=== PATIENT | female | born 1960 | race American Indian/Alaskan Native ===

== ENCOUNTER 2020-01-04 08:59 | Outpatient (CLI) | payer BC ==
--- NOTE | 2020-01-04 11:26 | Vascular Lab Report ---
VL venous duplex LE BILAT INDICATION / CLINICAL INFORMATION: LYMPHEDEMA, CHRONIC VENOUS HYPERTENSION W/ INFLAMMATION. COMPARISON: None available. FINDINGS: No evidence of deep vein thrombosis. Signer Name: Du Walton MD Signed: 01/04/2020 11:21 AM Workstation Name: [id number]
== END 2020-01-04 09:00 | disposition home or self-care (01) ==
LOC: VAS 08:59
PROVIDERS: ATTEND Surgery Vascular Surgery
DX: I87.323 Chronic venous hypertension (idiopathic) with inflammation of bilateral lower extremity (principal); I89.0 Lymphedema, not elsewhere classified
CPT/HCPCS: 93970

== ENCOUNTER 2020-07-20 05:45 | Outpatient (CLI) | payer BC ==
[2020-07-20 06:20] LABS: Creatinine,Urine 245.6 mg/dL (0.1-20.0)
[2020-07-20 06:21] LABS: Bacteria,Urine 1+ /HPF (Negative); Bilirubin,Urine NEG (Negative); Blood,Urine NEG (Negative); Color,Urine Yellow (Yellow); Mucus,Urine 1+ /HPF; Protein,Urine <15 mg/dL mg/dL (Negative)
[2020-07-20 06:26] LABS: Basophils % (Auto) 0.9 % (0.0-1.8); Eosinophils # (Auto) 0.1 K/mm3 (0.0-0.4); Eosinophils % (Auto) 2.9 % (0.0-4.3); Hematocrit 36.9 % (30.3-42.9); Hemoglobin 12.6 gm/dl (10.1-14.3); Lymphocytes # (Auto) 1.5 K/mm3 (1.2-5.4); Lymphocytes % (Auto) 30.5 % (13.4-35.0); Mean Corpuscular HGB Conc 34 % (30-34); Mean Corpuscular Volume 90 fl (79-97); Monocytes # (Auto) 0.4 K/mm3 (0.0-0.8); Monocytes % (Auto) 8.3 % (0.0-7.3); Red Blood Count 4.09 M/mm3 (3.65-5.03); Red Cell Distribution Width 14.8 % (13.2-15.2)
[2020-07-20 06:27] LABS: Platelet Count 280 K/mm3 (140-440)
[2020-07-20 06:31] LABS: Alanine Aminotransferase 17 units/L (7-56); Albumin 4.1 g/dL (3.9-5); BUN/Creatinine Ratio 27; Blood Urea Nitrogen 19 mg/dL (7-17); Calcium 8.8 mg/dL (8.4-10.2); Chol/HDL Ratio 2.78 %; HDL Cholesterol 52 mg/dL (40-59); Hemolysis Index 44; LDL Cholesterol,Direct 90 mg/dL (50-130)
[2020-07-20 06:55] LABS: Microalbumin/Creatinine Ratio 5.7 ug/mg
== END 2020-07-20 05:46 | disposition home or self-care (01) ==
LOC: LAB 05:45
PROVIDERS: ATTEND Internal Medicine
DX: Z00.00 Encounter for general adult medical examination without abnormal findings (principal); I10 Essential (primary) hypertension; E66.09 Other obesity due to excess calories
CPT/HCPCS: 36415; 80053; 80061; 81001; 82043; 84443; 85025